=== PATIENT | male | born 1960 | race Caucasian/White ===

== ENCOUNTER 2025-06-22 15:04 | Emergency (ER) | payer MEDICARE ==
[2025-06-22] MEDS: Silver Nitrate Applicator Each TOP ONE (15:38)
== END 2025-06-22 15:44 | disposition home or self-care (01) ==
LOC: DL.ED 15:04
DX: L60.0 Ingrowing nail (principal); L08.9 Local infection of the skin and subcutaneous tissue, unspecified
CPT/HCPCS: 11750; 99283; J2003